=== PATIENT | female | born 1985 | race Caucasian/White ===

== ENCOUNTER 2017-01-08 08:17 | Emergency (ER) | payer MEDICAID ==
[~2017-01-08] VITALS: Ht 157.5 cm; Wt 84.1 kg
[2017-01-08 08:20] VITALS: BP 130/86; RESP 16; O2SAT 99
--- NOTE | 2017-01-08 08:56 | ED.REPORT ---
HPI-Ear Pain/Problem/FB Date of Service Jan 08, 2017 ED Provider: Leigh Marc MD Patient is a 31 year old female with a hx of recurrent ear infections who presents to the ED complaining of R ear pain onset one week ago. Associated symptoms include cough. She denies fever, chills, SOB, discharge from the ear, or any other symptoms. She does not have a PCP. She has had a cold for about a month. She has been taking Ibuprofen for her pain. Nursing Notes Stated Complaint: EAR PAIN Chief Complaint: ENT & Mouth Nursing Notes Reviewed: Yes Allergies: Coded Allergies: Sulfa (Sulfonamide Antibiotics) (Verified Allergy, Severe, swelling, ) Scheduled Amoxicillin (Amoxicillin) 500 Mg Capsule 500 MG PO TID Ciprofloxacin/Dexameth Otic Susp (Ciprodex Otic Susp) 15 Drop/Ml Oticsoln 2 DROP AD QID Fluconazole (Diflucan) 150 Mg Tablet 150 MG PO ONCE General Time Seen by MD: 08:56 Chief Complaint Ear problem right Hx Obtained From: Patient Arrived By: Walk-in Onset Occurred: 1 week ago Symptom Duration: Since onset Recent Healthcare: No recent doctor visit Similar Sx Previous: Yes Past Medical History Past Medical History Chronic ear infections Past Surgical History Reports: (x2), Hysterectomy Smoking History Current Every Day Smoker Social History Drug Use: In recovery Other Social History: Good social support Ambulatory Status Independent Review of Systems Constitutional: Denies: Chills, Fever Ears / Nose / Throat: Reports: Earache right, Denies: Ear drainage right Complete sys rev & neg: except as marked. Additional Review of Systems Respiratory: Reports: Non-productive cough, Denies: Shortness of breath Physical Exam Initial Vital Signs Vital Signs (First) Date Time Temp Pulse Resp B/P Pulse Ox O2 Delivery O2 Flow Rate FiO2 01/08/17 08:20 36.5 84 16 130/86 99 Room Air Initial VS: Reviewed, Vital signs normal Psychiatric: Mood/affect normal, Behavior normal, Normal thought content General/Constitutional: Awake, Alert, No acute distress ENT: Pharynx NL R ear canal swollen. Swelling and discharge obtructing view of middle ear. Head / Eyes: Atraumatic, Normocephalic Neck: Full range of motion Mild cervical adenopathy Respiratory / Chest: Breath sounds NL, Breath sounds = bilat, No respiratory distress Cardiovascular: Heart rate NL, Regular rhythm, Heart sounds NL, No gallop, No murmurs, No rubs Skin: Color NL, Warm, Dry Neurologic: Oriented X3, Speech NL Re-Eval/Medical Decision Re-Evaluation/Progress : Time of Eval: 09:05 Re-Evaluation/Progress Note: Discussed plan for discharge. Patient understands and agrees with plan. All questions addressed at this time. Counseled Regarding: Diagnosis, Need for follow-up, When/why to return to ED Discharge & Departure Primary Impression: Otitis externa Otitis externa type: unspecified type Laterality: right Chronicity: unspecified Qualified Code: H60.91 - Unspecified otitis externa, right ear Additional Impressions: Otitis media Otitis media type: unspecified Laterality: right Chronicity: unspecified Qualified Code: H66.91 - Otitis media, unspecified, right ear Seasonal allergies Allergic rhinitis trigger: unspecified Qualified Code: J30.2 - Other seasonal allergic rhinitis Disposition: Home Discharge Condition All VS Reviewed: Yes Condition: Stable Patient Instructions: Otitis Externa (ED), Otitis Media (ED) Additional Instructions: Thank you for coming to the emergency department today. I believe you have both a middle and external ear infection. I have prescribed you Amoxicillin for your middle ear infection and antibiotic drops for your external ear infection. Take the antibiotics as prescribed until they are gone. Use the ear drops as prescribed. I suspect that seasonal allergies are contributing to the recurrent ear infections. Try regular saine nasal risnes (like a Netti Pot) to see if this makes a difference for you. If you happen to develop a vaginal yeast infection after taking the amoxicillin , please use the single dose of Diflucan Call the [facility] to establish primary care. Return to the emergency department for any new or worsening symptoms. I hope you feel better soon! Referrals: [facility] Attestation Portions of this note were transcribed by Rafiq Prado. I, Dr. Marc personally performed the history, physical exam and medical decision-making; I reviewed and confirmed the accuracy of the information in the transcribed note. Signed by: Leonie Prescott, 01/08/17 at 0938 copies to: [facility] Leigh Marc MD Jan 08, 2017 08:56 RAFIQ PRADO Jan 08, 2017 09:07
[2017-01-08] MEDS ORDERED: FLUC150T48 PO (09:31)
[2017-01-08] MEDS ORDERED: CIPRODEX AD (09:32)
[2017-01-08] MEDS ORDERED: AMOX500C2 PO (09:32)
== END 2017-01-08 09:40 | disposition home or self-care (01) ==
LOC: SED 08:17
DX: H60.91 Unspecified otitis externa, right ear (principal); H66.91 Otitis media, unspecified, right ear; J30.2 Other seasonal allergic rhinitis; F17.200 Nicotine dependence, unspecified, uncomplicated; Z88.2 Allergy status to sulfonamides

== ENCOUNTER 2017-02-09 09:27 | Emergency (ER) | payer MEDICAID, OTHER ==
[~2017-02-09] VITALS: Ht 154.9 cm; Wt 90.9 kg
[~2017-02-09 09:27] MED LIST: AMOX500C2 PO; CIPRODEX AD; FLUC150T48 PO
[2017-02-09 09:32] VITALS: BP 124/87; PULSE 92; RESP 20; O2SAT 97
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
--- NOTE | 2017-02-09 10:18 | DRSVH ---
PROCEDURE: X-RAY LEFT HAND, MINIMUM THREE VIEWS ([id number]) INDICATIONS: LEFT HAND PAIN TECHNIQUE: 4 views of the hand(s) acquired. COMPARISON: None. FINDINGS: Bones: No fractures or dislocations. Carpal bones are normally aligned. No suspicious bony lesions . Soft tissues: No suspicious soft tissue calcifications. IMPRESSION: No acute radiographic findings. If pain persists, followup imaging in 5-7 days is recomm ended to exclude occult fracture. Dictated by: Luana Houston M.D. on 02/09/2017 at 10:16 Approved by: Luana Houston M.D. on 02/09/2017 at 10:17
[2017-02-09] MEDS ORDERED: IBUP400T22 PO (10:40)
[2017-02-09] MEDS ORDERED: ACET500C49 PO (10:40)
[2017-02-09 10:45] VITALS: BP 124/87; PULSE 92; RESP 20; O2SAT 97
== END 2017-02-09 10:45 | disposition home or self-care (01) ==
LOC: SED 09:27
DX: S66.912A Strain of unspecified muscle, fascia and tendon at wrist and hand level, left hand, initial encounter (principal); W18.30XA Fall on same level, unspecified, initial encounter; Y93.9 Activity, unspecified; Y92.480 Sidewalk as the place of occurrence of the external cause; Y99.8 Other external cause status; F17.200 Nicotine dependence, unspecified, uncomplicated; Z88.2 Allergy status to sulfonamides

== ENCOUNTER 2017-02-16 13:22 | Emergency (ER) | payer OTHER ==
[~2017-02-16] VITALS: Ht 154.9 cm; Wt 90.9 kg
[~2017-02-16 13:22] MED LIST changes: +ACET500C49 PO; +IBUP400T22 PO
[2017-02-16 13:32] VITALS: BP 101/58; PULSE 92; RESP 20; O2SAT 97
[2017-02-16 14:59] VITALS: BP 116/52; PULSE 87; RESP 16; O2SAT 97
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
--- NOTE | 2017-02-16 15:09 | DRSVH ---
PROCEDURE: X-RAY CERVICAL SPINE, 2 OR 3 VIEWS INDICATIONS: midline spinous process tenderness TECHNIQUE: 7 view(s) of the cervical spine were acquired. COMPARISON: None. FINDINGS: Bones: On the lateral view, the cervicothoracic junction is not well-seen. The alignment appears to be within normal limits through the cervicothoracic region. The vertebral body heights and preverteb ral soft tissues are within normal limits throughout the cervical spine without evidence to suggest a cute compression fracture. The bone mineralization is within normal limits. No significant degenerative changes of the cervical spine are evident. Soft tissues: No prevertebral soft tissue swelling. The imaged overlying soft tissues of the neck a re within normal limits. IMPRESSION: No displaced fractures of the cervical spine are evident. If there is high clinical conc clarice for an acute cervical spine fracture, CT is recommended for further evaluation. Dictated by: Juan Levine M.D. on 02/16/2017 at 14:05 Approved by: Juan Levine M.D. on 02/16/2017 at 14:08
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
[2017-02-16] MEDS ORDERED: ACET-171 PO (15:57)
[2017-02-16] MEDS ORDERED: NPR500T PO (15:57)
[2017-02-16 17:36] VITALS: BP 128/57; PULSE 75; RESP 16
== END 2017-02-16 16:05 | disposition home or self-care (01) ==
LOC: SED 13:22
DX: S70.02XA Contusion of left hip, initial encounter (principal); S70.12XA Contusion of left thigh, initial encounter; S80.02XA Contusion of left knee, initial encounter; V13.4XXA Pedal cycle driver injured in collision with car, pick-up truck or van in traffic accident, initial encounter; Y93.55 Activity, bike riding; Y92.410 Unspecified street and highway as the place of occurrence of the external cause; Y99.8 Other external cause status; M54.9 Dorsalgia, unspecified; M79.7 Fibromyalgia; F17.200 Nicotine dependence, unspecified, uncomplicated; Z88.2 Allergy status to sulfonamides